=== PATIENT | female | born 1990 | race Caucasian/White ===

== ENCOUNTER 2018-06-06 23:36 | Emergency (ER) | payer OTHER ==
[2018-06-07 00:36] LABS: BILIRUBIN,URINE NEGATIVE (NEGATIVE); GLUCOSE, URINE (UA) NEGATIVE (NEGATIVE); KETONES,URINE (UA) NEGATIVE (NEGATIVE); LEUKOCYTE ESTERASE, URINE LARGE (NEGATIVE); NITRITE,URINE NEGATIVE (NEGATIVE); OCCULT BLOOD,URINE MODERATE (NEGATIVE); PROTEIN,URINE TRACE mg/dL (NEGATIVE); UROBILINOGEN,URINE 0.2 (NORMAL) E.U./dL (NORMAL)
[2018-06-07 00:42] LABS: CLARITY,URINE HAZY (CLEAR); HCG UR QUAL NEGATIVE
[2018-06-07 00:45] LABS: BACTERIA,URINE Few /HPF (None Seen); SQUAMOUS EPITHELIAL CELL,UR RARE Squamous (<= Few)
[2018-06-07] MEDS ORDERED: PHENAZOPYRIDINE 100 MG TABLET PO STA (01:15)
[2018-06-07] MEDS ORDERED: SULFAMETH/TRIMETH DS 800/160 MG TABLET PO STA (01:15)
--- NOTE | 2018-06-07 01:18 | ED Physician Documentation ---
PD HPI FEMALE - Stated complaint Stated Complaint: FEMALE - Chief complaint Chief Complaint: UTI - History obtained from History obtained from: Patient - History of Present Illness Timing - onset: Yesterday Timing - details: Gradual onset Associated symptoms: Dysuria, Urinary frequency Similar symptoms before: Work up / diagnostics Recently seen: Not recently seen - Additional information Additional information: Patient is a 27 year old female with no significant past medical history who is presenting to the emergency department for dysuria and increased frequency. patient states that her symptoms have been going on for the last few days. Review of Systems Ten Systems: 10 systems reviewed and negative Constitutional: denies: Fever, Chills GI: denies: Nausea, Vomiting PD PAST MEDICAL HISTORY - Past Medical History Past Medical History: No Cardiovascular: None Respiratory: None Neuro: None Endocrine/Autoimmune: None GI: None VASCULAR MANAGER: None : None HEENT: Other Psych: None Musculoskeletal: None Derm: None - Past Surgical History Past Surgical History: No - Present Medications Home Medications: Ambulatory Orders Medication Instructions Recorded Confirmed Phenazopyridine HCl [Pyridium] 200 mg PO TID PRN #6 tablet 06/07/18 Sulfamethox/Trimeth 800/160 1 each PO BID #10 tablet 06/07/18 [Bactrim Ds 800/160] - Allergies Allergies/Adverse Reactions: Allergies Allergy/AdvReac Type Severity Reaction Status Date / Time No Known Drug Allergies Allergy Verified 06/06/18 23:45 - Social History Does the pt smoke?: Yes Smoking Status: Light tobacco smoker Does the pt drink ETOH?: Yes Does the pt have substance abuse?: No - Immunizations Immunizations are current?: Yes - POLST Patient has POLST: No PD ED PE NORMAL - Vitals Vital signs reviewed: Yes - General General: Alert and oriented X 3, No acute distress - HEENT HEENT: Moist mucous membranes - Cardiac Cardiac: RRR - Respiratory Respiratory: No respiratory distress - Abdomen Abdomen: Non distended - Derm Derm: Normal color, Warm and dry - Extremities Extremities: No deformity - Neuro Neuro: Alert and oriented X 3, No motor deficit, Normal speech Eye Opening: Spontaneous - Psych Psych: Normal mood Results - Vitals Vitals: Vital Signs - 24 hr 06/06/18 06/07/18 23:45 01:29 Temperature 36.1 C L Heart Rate 90 90 Respiratory 18 17 Rate Blood Pressure 115/90 H 105/72 O2 Saturation 100 100 Oxygen O2 Source Room air - Labs Labs: Laboratory Tests 06/07/18 06/07/18 00:00 00:00 Urine Color YELLOW Urine Clarity HAZY Urine pH 7.0 Ur Specific [place] <=1.005 <1.005 Urine Protein TRACE Urine Glucose (UA) NEGATIVE Urine Ketones NEGATIVE Urine Occult Blood MODERATE H Urine Nitrite NEGATIVE Urine Bilirubin NEGATIVE Urine Urobilinogen 0.2 (NORMAL) Ur Leukocyte Esterase LARGE H Urine RBC 6-10 H Urine WBC >25 H Ur Squamous Epith Cells RARE Squamous Urine Bacteria Few Ur Microscopic Review INDICATED Urine Culture Comments INDICATED Urine HCG, Qual NEGATIVE PD MEDICAL DECISION MAKING - ED course Complexity details: reviewed old records, reviewed results, re-evaluated patient , considered differential, d/w patient ED course: patient was seen and examined at bedside. patient was well appearing. urine was sent and was consistent with urinary tract infection. Patient was treated with pyridium and bactrim. patient required no further work up at this time and was stable for discharge with outpatient follow up. - Sepsis Event Vital Signs: Vital Signs - 24 hr 06/06/18 06/07/18 23:45 01:29 Temperature 36.1 C L Heart Rate 90 90 Respiratory 18 17 Rate Blood Pressure 115/90 H 105/72 O2 Saturation 100 100 Oxygen O2 Source Room air Departure - Departure Disposition: 01 Home, Self Care Clinical Impression: Urinary tract infection Condition: Good Instructions: ED UTI Cystitis Female Follow-Up: NATHAN PETER DO [Primary Care Provider] - As Needed Prescriptions: Phenazopyridine HCl [Pyridium] 200 mg PO TID PRN #6 tablet PRN Reason: dysuria Sulfamethox/Trimeth 800/160 [Bactrim Ds 800/160] 1 each PO BID #10 tablet Comments: Your symptoms today are being caused by a urinary tract infection. You have been started on antibiotics and you will be on them for the next 5 days. It is important that you stay well hydrated during this time. You can take the pyridium, motrin or tylenol as needed for pain. You will be called if the bacteria is not sensitive to the antibiotic. You should follow up with your doctor if your symptoms persist. You may return to the emergency department at any time for new, worsening or uncontrollable symptoms. Discharge Date/Time: 06/07/18 01:29
[2018-06-07 01:30] VITALS: BP 105/72
== END 2018-06-07 01:29 | disposition home or self-care (01) ==
LOC: ED 23:36
DX: N39.0 Urinary tract infection, site not specified (principal); F17.200 Nicotine dependence, unspecified, uncomplicated
CPT/HCPCS: 81001; 81025; 87086; 87181; 99283; A9270; 81003

== ENCOUNTER 2019-02-14 16:49 | Outpatient (CLI) | payer OTHER ==
[2019-02-14] MEDS ORDERED: GADOBUTROL 7.5 MMOL/7.5 ML VIAL ONE (17:06)
[2019-02-14] MEDS ORDERED: GADOBUTROL 7.5 MMOL/7.5 ML VIAL IVP ONE ×2 (17:39)
--- NOTE | 2019-02-15 05:01 | MRI Report ---
Reason: PAIN IN THROAT Procedure Date: 02/14/2019 Accession Number: [id number] / [id number] Procedure: MRI - Neck Soft Tissue W/WO CPT Code: FULL RESULT: EXAM: MRI SOFT TISSUE NECK WITHOUT AND WITH CONTRAST EXAM DATE: 02/14/2019 06:06 PM. CLINICAL HISTORY: PAIN IN THROAT. COMPARISON: None. TECHNIQUE: Multiplanar, multisequence T1-weighted and fluid-sensitive MR sequences of the neck soft tissues were performed. Other: None. IV Contrast: . FINDINGS: Skull Base: Visualized intracranial contents and orbits are unremarkable. The skull base is intact. The visualized sinuses are clear. Pharynx and Oral Cavity: The pharyngeal mucosa is unremarkable. The infratemporal fossa, parapharyngeal spaces, and retropharyngeal space are unremarkable. The base of the tongue is symmetric. No mass lesion. The floor of the mouth is symmetric and unremarkable. The airway is patent. Larynx: The larynx and supraglottic airway are patent without mass lesion. The vocal cords are symmetric. The visualized trachea is unremarkable. Parotid and Submandibular Glands: Symmetric and unremarkable. Lymph Nodes and Soft Tissues: No enlarged cervical, supraclavicular fossa, or visualized superior mediastinal lymph nodes. No masses or swelling. Vasculature: Intact. Bones: Noted is a right posterior paracentral disk protrusion at C5-C6. There is contiguity and slight mass-effect on the right aspect of the cord. There is no appreciable narrowing of the foramina although this study resolution is not detailed for close evaluation of the cervical spine and structures. Other: The upper chest and thoracic inlet are unremarkable. The thyroid is unremarkable. IMPRESSION: 1. No definite findings within the soft tissues to explain clinical symptoms. 2. Right posterior paracentral disk protrusion C5-C6 with slight mass-effect on the right anterior aspect of the cord. RADIA
== END 2019-02-14 16:50 | disposition home or self-care (01) ==
LOC: DI 16:49
PROVIDERS: ATTEND General Practice
DX: R07.0 Pain in throat (principal); M50.222 Other cervical disc displacement at C5-C6 level
CPT/HCPCS: 70543; A9585

== ENCOUNTER 2019-10-19 14:37 | Emergency (ER) | payer OTHER ==
[2019-10-19] MEDS ORDERED: SODIUM CHLORIDE 0.9% 1,000 ML IV ONE ×2 (15:58)
--- NOTE | 2019-10-19 16:06 | ED Physician Documentation ---
PD HPI SYNCOPE - Stated complaint Stated Complaint: FALL/FACIAL INJURY, POSSIBLE SZ - Chief complaint Chief Complaint: Neuro - History obtained from History obtained from: Patient, Family - History of Present Illness Witnessed: Witnessed Duration: Seconds (10) Preceding symptoms: Light headed Associated symptoms: No: Seizure, Incontinant of urine, Incontinant of stool, Headache, Vision changes, Chest pain, Palpitations, Diaphoresis, Dyspnea, Nausea / vomiting, Abdominal pain Contributing factors: Just stood up Injury occurred: Fell (hit face on ground) Pain level max: 5 Pain level now: 4 Similar symptoms before: Has not had sx before Recently seen: Not recently seen - Additional information Additional information: 29-year-old female states that she had an emesis this morning. She was on the couch when she stood up and stretched. Next thing she knew she was on the ground. witnessed the event. He states she was unconscious for a few seconds, back to her normal self within about 30 seconds. No seizure activity. No vomiting. No changes in her home medications. She is on Zoloft at home. Review of Systems Constitutional: denies: Fever, Chills Cardiac: denies: Chest pain / pressure Respiratory: denies: Cough GI: denies: Nausea, Vomiting : denies: Now EGA Skin: denies: Rash Musculoskeletal: denies: Neck pain, Back pain Neurologic: denies: Focal weakness, Numbness, Seizure, Confused PD PAST MEDICAL HISTORY - Past Medical History Cardiovascular: None Respiratory: None Neuro: None Endocrine/Autoimmune: None GI: None OUTREACH SPECIALIST: None : None HEENT: Other Psych: None Musculoskeletal: None Derm: None - Past Surgical History Past Surgical History: No - Present Medications Home Medications: Ambulatory Orders Medication Instructions Recorded Confirmed Sertraline [Zoloft] 10/19/19 - Allergies Allergies/Adverse Reactions: Allergies Allergy/AdvReac Type Severity Reaction Status Date / Time No Known Drug Allergies Allergy Verified 10/19/19 14:57 - Social History Does the pt smoke?: Yes Smoking Status: Light tobacco smoker Does the pt drink ETOH?: Yes Does the pt have substance abuse?: No - Immunizations Immunizations are current?: Yes - POLST Patient has POLST: No PD ED PE NORMAL - Vitals Vital signs reviewed: Yes - General General: Alert and oriented X 3, No acute distress - HEENT HEENT: PERRL, Ears normal, Moist mucous membranes, Pharynx benign, Other (Abrasion to the upper lip. No facial bone tenderness. No deformity. No swelling. No lacerations. No scalp hematomas or palpable skull fractures.) - Neck Neck: Supple, no meningeal sign - Cardiac Cardiac: RRR - Respiratory Respiratory: No respiratory distress, Clear bilaterally - Abdomen Abdomen: Soft, Non tender, Non distended - Derm Derm: Warm and dry - Neuro Neuro: Alert and oriented X 3, milk collector 2-12 intact, No motor deficit, No sensory deficit, Normal speech Eye Opening: Spontaneous Motor: Obeys Commands Verbal: Oriented GCS Score: 15 - Psych Psych: Normal mood, Normal affect Results - Vitals Vitals: Vital Signs - 24 hr 10/19/19 10/19/19 10/19/19 14:53 16:25 17:10 Temperature 36.8 C Heart Rate 89 94 89 Respiratory 16 18 18 Rate Blood Pressure 139/84 H 109/74 105/76 O2 Saturation 99 95 98 Oxygen O2 Source Room air - EKG (time done) 1607 Rate: Rate (enter#) (109) Rhythm: Sinus tachycardia [place]: Normal Intervals: Normal NM QRS: Normal Ischemia: Normal ST segments - Labs Labs: Laboratory Tests 10/19/19 10/19/19 10/19/19 16:00 16:20 16:20 WBC 8.0 RBC 3.72 L Hgb 12.2 Hct 36.5 L MCV 98.1 MCH 32.8 H MCHC 33.4 RDW 12.3 Plt Count 293 MPV 8.2 Neut # (Auto) 5.6 Lymph # (Auto) 1.7 [place] # (Auto) 0.6 Eos # (Auto) 0.1 Baso # (Auto) 0.0 Absolute Nucleated RBC 0.00 Nucleated RBC % 0.0 D-Dimer Sodium 135 Potassium 4.1 Chloride 100 L Carbon Dioxide 22 Anion Gap 13.0 BUN 8 Creatinine 0.6 Estimated GFR (MDRD) 118 Glucose 80 Calcium 9.0 Total Bilirubin 0.6 AST 30 ALT 32 Alkaline Phosphatase 39 L Troponin I High Sens Total Protein 7.3 Albumin 4.2 Globulin 3.1 Albumin/Globulin Ratio 1.4 Lipase 38 Urine Color YELLOW Urine Clarity CLEAR Urine pH 5.5 Ur Specific [place] <=1.005 Urine Protein NEGATIVE Urine Glucose (UA) NEGATIVE Urine Ketones NEGATIVE Urine Occult Blood NEGATIVE Urine Nitrite NEGATIVE Urine Bilirubin NEGATIVE Urine Urobilinogen 0.2 (NORMAL) Ur Leukocyte Esterase NEGATIVE Ur Microscopic Review NOT INDICATED Urine Culture Comments NOT INDICATED Urine HCG, Qual NEGATIVE Ethyl Alcohol 53.5 10/19/19 10/19/19 16:20 16:20 WBC RBC Hgb Hct MCV MCH MCHC RDW Plt Count MPV Neut # (Auto) Lymph # (Auto) [place] # (Auto) Eos # (Auto) Baso # (Auto) Absolute Nucleated RBC Nucleated RBC % D-Dimer < 200.0 L Sodium Potassium Chloride Carbon Dioxide Anion Gap BUN Creatinine Estimated GFR (MDRD) Glucose Calcium Total Bilirubin AST ALT Alkaline Phosphatase Troponin I High Sens < 2.3 L Total Protein Albumin Globulin Albumin/Globulin Ratio Lipase Urine Color Urine Clarity Urine pH Ur Specific [place] Urine Protein Urine Glucose (UA) Urine Ketones Urine Occult Blood Urine Nitrite Urine Bilirubin Urine Urobilinogen Ur Leukocyte Esterase Ur Microscopic Review Urine Culture Comments Urine HCG, Qual Ethyl Alcohol - Rads (name of study) cxr Radiology: Prelim report reviewed, EMP read contemporaneously, See rad report (No acute disease) PD MEDICAL DECISION MAKING - ED course Complexity details: reviewed results, re-evaluated patient, considered differential, d/w patient, d/w family ED course: 29-year-old female with syncope at home today. No acute laboratory findings, ra diographic findings or EKG findings. She did have tachycardia, no symptoms of PE and d-dimer is negative. Her tachycardia improved with IV fluids. Likely that she was mildly dehydrated and when she stood up her blood pressure dropped. This may have been exacerbated by the alcohol today as well. We will have her follow-up with her doctor for further care. Patient counseled regarding signs and symptoms for which I believe and urgent re-evaluation would be necessary. Patient with good understanding of and agreement to plan and is comfortable going home at this time This document was made in part using voice recognition software. While efforts are made to proofread this document, sound alike and grammatical errors may occur. Departure - Departure Disposition: 01 Home, Self Care Clinical Impression: Syncope Qualifiers: Syncope type: unspecified Qualified Code(s): R55 - Syncope and collapse Condition: Good Instructions: ED Fainting Unkn Cause Follow-Up: NATHAN PETER DO [Primary Care Provider] - Within 1 week Comments: Your testing does not show any acute abnormalities today, other than dehydration. Return if you worsen. Follow-up with your doctor within 1 week. They may want to put you on a Holter monitor for home which monitors your heart for any arrhythmias. Discharge Date/Time: 10/19/19 18:00
--- NOTE | 2019-10-19 16:10 | XRAY Report ---
Reason: syncope Procedure Date: 10/19/2019 Accession Number: [id number] / [id number] Procedure: XR - Chest 1 View X-Ray CPT Code: 16964 Final Report FULL RESULT: EXAM: CHEST RADIOGRAPHY EXAM DATE: 10/19/2019 04:04 PM. CLINICAL HISTORY: Syncope. COMPARISON: None. TECHNIQUE: 1 view. FINDINGS: Lungs/Pleura: No focal opacities evident. No pleural effusion. No pneumothorax. Mediastinum: Within exam limitations, the cardiomediastinal contour is normal. Other: None. IMPRESSION: No acute findings. RADIA
[2019-10-19 16:19] LABS: BILIRUBIN,URINE NEGATIVE (NEGATIVE); GLUCOSE, URINE (UA) NEGATIVE (NEGATIVE); KETONES,URINE (UA) NEGATIVE (NEGATIVE); LEUKOCYTE ESTERASE, URINE NEGATIVE (NEGATIVE); NITRITE,URINE NEGATIVE (NEGATIVE); OCCULT BLOOD,URINE NEGATIVE (NEGATIVE); PH,URINE 5.5 PH (5.0-7.5); PROTEIN,URINE NEGATIVE (NEGATIVE); UROBILINOGEN,URINE 0.2 (NORMAL) E.U./dL (NORMAL)
[2019-10-19 16:23] LABS: CLARITY,URINE CLEAR (CLEAR); HCG UR QUAL NEGATIVE
[2019-10-19 16:27] LABS: BASOPHILS % (AUTO) 0.5 %; EOSINOPHILS # (AUTO) 0.1 10^3/uL (0.0-0.7); EOSINOPHILS % (AUTO) 0.7 %; HGB - HEMOGLOBIN 12.2 g/dL (12.0-16.0); LYMPHOCYTES # (AUTO) 1.7 10^3/uL (1.5-3.5); LYMPHOCYTES % (AUTO) 21.5 %; MEAN CORPUSCULAR HEMOGLOBIN 32.8 pg (27.0-31.0); MEAN CORPUSCULAR HGB CONC 33.4 g/dL (32.0-36.0); MEAN CORPUSCULAR VOLUME 98.1 fL (81.0-99.0); MEAN PLATELET VOLUME 8.2 fL (7.9-10.8); MONOCYTES # (AUTO) 0.6 10^3/uL (0.0-1.0); MONOCYTES % (AUTO) 7.4 %; NEUTROPHILS # (AUTO) 5.6 10^3/uL (1.5-6.6); NEUTROPHILS % (AUTO) 69.5 %; PLT - PLATELET COUNT 293 10^3/uL (130-450); RED BLOOD COUNT 3.72 10^6/uL (4.20-5.40); RED CELL DISTRIBUTION WIDTH 12.3 % (12.0-15.0)
[2019-10-19 16:44] LABS: ALBUMIN 4.2 g/dL (3.2-5.5); ALBUMIN/GLOBULIN RATIO 1.4 (1.0-2.2); BILIRUBIN,TOTAL 0.6 mg/dL (0.2-1.0); CREATININE 0.6 mg/dL (0.4-1.0); TOTAL PROTEIN 7.3 g/dL (6.7-8.2)
[2019-10-19 17:10] VITALS: BP 105/76
== END 2019-10-19 18:00 | disposition home or self-care (01) ==
LOC: ED 14:37
DX: R55 Syncope and collapse (principal); E86.0 Dehydration; R00.0 Tachycardia, unspecified; S00.511A Abrasion of lip, initial encounter; W18.30XA Fall on same level, unspecified, initial encounter; Y93.89 Activity, other specified; F17.200 Nicotine dependence, unspecified, uncomplicated
CPT/HCPCS: 36415; 71045; 80053; 80320; 81001; 81003; 81025; 83690; 84484; 85025; 85379; 87086; 93005; 96360; 99284

== ENCOUNTER 2022-06-21 18:01 | Emergency (ER) | payer OTHER ==
[2022-06-21 18:11] VITALS: BP 118/84
[2022-06-21 18:36] LABS: BILIRUBIN,URINE NEGATIVE (NEGATIVE); GLUCOSE, URINE (UA) NEGATIVE (NEGATIVE); KETONES,URINE (UA) NEGATIVE (NEGATIVE); LEUKOCYTE ESTERASE, URINE NEGATIVE (NEGATIVE); NITRITE,URINE NEGATIVE (NEGATIVE); OCCULT BLOOD,URINE NEGATIVE (NEGATIVE); PROTEIN,URINE NEGATIVE (NEGATIVE); UROBILINOGEN,URINE 0.2 (NORMAL) E.U./dL (NORMAL)
[2022-06-21 18:38] LABS: CLARITY,URINE CLEAR (CLEAR); HCG UR QUAL NEGATIVE
[2022-06-21 18:39] LABS: BASOPHILS % (AUTO) 0.6 %; EOSINOPHILS # (AUTO) 0.2 10^3/uL (0.0-0.7); EOSINOPHILS % (AUTO) 3.4 %; HCT - HEMATOCRIT 34.4 % (37.0-47.0); LYMPHOCYTES # (AUTO) 2.5 10^3/uL (1.5-3.5); LYMPHOCYTES % (AUTO) 53.3 %; MEAN CORPUSCULAR HEMOGLOBIN 34.6 pg (27.0-31.0); MEAN CORPUSCULAR HGB CONC 34.9 g/dL (32.0-36.0); MEAN CORPUSCULAR VOLUME 99.1 fL (81.0-99.0); MEAN PLATELET VOLUME 7.9 fL (7.9-10.8); MONOCYTES # (AUTO) 0.4 10^3/uL (0.0-1.0); MONOCYTES % (AUTO) 8.2 %; NEUTROPHILS # (AUTO) 1.6 10^3/uL (1.5-6.6); NEUTROPHILS % (AUTO) 34.5 %; PLT - PLATELET COUNT 265 10^3/uL (130-450); RED BLOOD COUNT 3.47 10^6/uL (4.20-5.40); RED CELL DISTRIBUTION WIDTH 13.8 % (12.0-15.0); WHITE BLOOD COUNT 4.7 x10^3/uL (4.8-10.8)
[2022-06-21 18:48] LABS: ALBUMIN 3.9 g/dL (3.2-5.5); ALBUMIN/GLOBULIN RATIO 1.3 (1.0-2.2); BILIRUBIN,TOTAL 0.4 mg/dL (0.2-1.0); CALCIUM 8.7 mg/dL (8.5-10.3); CREATININE 0.5 mg/dL (0.4-1.0); POTASSIUM 4.1 mmol/L (3.5-5.0)
--- NOTE | 2022-06-21 19:33 | ED Physician Documentation ---
History of Present Illness - Stated complaint Stated Complaint: FEMALE - Chief complaint Chief Complaint: Abd Pain - Additonal information Additional information: 31-year-old female presents emergency department for evaluation of 1 week of right upper quadrant and flank pain. Pain is mostly intermittent sometimes worse with activity and occasionally after eating. No nausea or vomiting. She has had a few episodes of watery diarrhea nonbloody nonmucoid. She reports that she is here today just to get" checked out.". She does endorse heavy alcohol use up to a bottle of wine per day. Also tobacco use. She was previously prescribed Lunesta which she has not filled for insomnia but otherwise has no other prescription history. No pertinent past surgical history. Review of Systems Constitutional: denies: Fever, Chills Eyes: reports: Reviewed and negative Nose: reports: Reviewed and negative Throat: reports: Reviewed and negative Cardiac: reports: Reviewed and negative Respiratory: reports: Reviewed and negative GI: reports: Abdominal Pain. 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 : None HEENT: Other Psych: None Musculoskeletal: None Derm: None - Past Surgical History Past Surgical History: No - Present Medications Home Medications: Ambulatory Orders Medication Instructions Recorded Confirmed Sertraline [Zoloft] 10/19/19 - Allergies Allergies/Adverse Reactions: Allergies Allergy/AdvReac Type Severity Reaction Status Date / Time No Known Drug Allergies Allergy Verified 06/21/22 18:11 - Social History Does the pt smoke?: Yes Smoking Status: Light tobacco smoker Does the pt drink ETOH?: Yes Does the pt have substance abuse?: No - Immunizations Immunizations are current?: Yes - POLST Patient has POLST: No PD ED PE NORMAL - General General: Alert and oriented X 3, No acute distress, Well developed/nourished - HEENT HEENT: Atraumatic, Moist mucous membranes - Neck Neck: Supple, no meningeal sign, No adenopathy - Cardiac Cardiac: RRR, No murmur - Respiratory Respiratory: No respiratory distress, Clear bilaterally - Abdomen Abdomen: Normal bowel sounds, Soft. No: Non tender (Mild right flank and right upper quadrant tenderness without guarding or rebound. Negative McBurney's negative Pringle's. No CVA tenderness) Results - Vitals Vitals: Vital Signs - 24 hr 06/21/22 18:08 Temperature 36.7 C Heart Rate 97 Respiratory 16 Rate Blood Pressure 118/84 H O2 Saturation 97 Oxygen O2 Source Room air - Labs Labs: Laboratory Tests 06/21/22 06/21/22 06/21/22 18:25 18:32 18:32 WBC 4.7 L RBC 3.47 L Hgb 12.0 Hct 34.4 L MCV 99.1 H MCH 34.6 H MCHC 34.9 RDW 13.8 Plt Count 265 MPV 7.9 Neut # (Auto) 1.6 Lymph # (Auto) 2.5 White # (Auto) 0.4 Eos # (Auto) 0.2 Baso # (Auto) 0.0 Absolute Nucleated RBC 0.00 Nucleated RBC % 0.0 Sodium 132 L Potassium 4.1 Chloride 96 L Carbon Dioxide 26 Anion Gap 10.0 BUN 6 Creatinine 0.5 Estimated GFR (MDRD) 144 Glucose 106 H Calcium 8.7 Total Bilirubin 0.4 AST 44 H ALT 32 Alkaline Phosphatase 46 Total Protein 7.0 Albumin 3.9 Globulin 3.1 Albumin/Globulin Ratio 1.3 Lipase 38 Urine Color YELLOW Urine Clarity CLEAR Urine pH 6.0 Ur Specific [place] <=1.005 Urine Protein NEGATIVE Urine Glucose (UA) NEGATIVE Urine Ketones NEGATIVE Urine Occult Blood NEGATIVE Urine Nitrite NEGATIVE Urine Bilirubin NEGATIVE Urine Urobilinogen 0.2 (NORMAL) Ur Leukocyte Esterase NEGATIVE Ur Microscopic Review NOT INDICATED Urine Culture Comments NOT INDICATED Urine HCG, Qual NEGATIVE - Rads (name of study) CT abd Radiology: Final report received (No definite acute intra-abdominal abnormality. No evidence of nephrolithiasis or obstructive uropathy. No evidence of appendicitis. No evidence of cholecystitis) PD MEDICAL DECISION MAKING - ED course Complexity details: reviewed results, re-evaluated patient, d/w patient ED course: 31-year-old female presents emergency department for evaluation of right upper quadrant right flank pain intermittent for about 1 week. Sometimes worse with movement and worse after eating. She does endorse moderate alcohol use. However on exam she has some mild right upper quadrant tenderness without a positive Pringle's. CBC was without leukocytosis or anemia. Her electrolytes had a mild hyponatremia with a sodium of 132. No electrolyte derangement otherwise or LFT abnormalities. A CT of the abdomen was completed and no findings to suggest acute cholecystitis, bowel obstruction appendicitis or urolithiasis. The etiology of the patient's pain is not clear at this time but given reassuring labs and exam she is stable for discharge home. I am recommending close follow-up with a primary care provider. I did recommend that the patient reduce markedly her alcohol use. Will follow closely with PCP. Emergent return precautions discussed for worsening symptoms Departure - Departure Disposition: Home, Self Care Clinical Impression: Right upper quadrant abdominal pain Condition: Stable Record reviewed to determine appropriate education?: Yes Instructions: ED Abdominal Pain Cause Unkn Fem Ch Follow-Up: DINA KATE MD [Primary Care Provider] - Comments: Jadyn tinoco are seen today in the emergency department for pain in the upper portion of your abdomen. Your symptoms began about 1 week ago. Here in the emergency department your CBC did not show an elevated white blood cell count. Your liver function tests were normal. The CT that we did of your abdomen did not show any findings to suggest kidney or gallstones. It does sound like you have moderate alcohol use and I would encourage you to reduce the amount of alcohol you consume to no more than 1 or 2 glasses of wine a few times a week. Please discuss this ED visit with your primary care provider. If you find that your symptoms are worsening, you develop fevers or vomiting you can return immediately to the ER.
--- NOTE | 2022-06-21 20:57 | CT Report ---
PROCEDURE: Abdomen/Pelvis WO INDICATIONS: RUQ/flank abd pain TECHNIQUE: Noncontrast 5 mm thick sections acquired from the diaphragms to the symphysis. 5 mm coronal and sagi ttal reformats were then performed. For radiation dose reduction, the following was used: automated exposure control, adjustment of mA and/or kV according to patient size. COMPARISON: None. FINDINGS: Image quality: Excellent. Lung bases:The visualized lung bases are clear. Heart: Heart is normal in size. URINARY: Right Kidney and Ureter: No stones or hydronephrosis. No hydroureter. Left Kidney and Ureter: No stones or hydronephrosis. No hydroureter. Bladder: Normal wall thickness. No stones. ABDOMEN: Liver: Noncontrast evaluation of the liver demonstrates no focal fatty infiltration in the anterior left hepatic lobe along the falciform ligament. Gallbladder: Within normal limits without calcified gallstones. Biliary ducts: No biliary ductal dilatation. Pancreas: Unremarkable. Spleen: Normal in size. Adrenal Glands: No adrenal nodules. Stomach and Bowel: Stomach, small bowel loops, and colon are normal in caliber and wall thickness. T he appendix is normal in appearance. Peritoneum: No abnormal intraperitoneal fluid. No free air. Ventral Wall: No hernia. Abdominal Nodes: No retroperitoneal or mesenteric adenopathy by size criteria. Vessels: Aorta and inferior vena cava are normal in size. PELVIS: Pelvic Organs: Unremarkable. Pelvic Nodes: No enlarged lymph nodes. Miscellaneous: No inguinal hernias identified. Bones: Visualized osseous structures demonstrate no suspicious focal lesions. IMPRESSION: 1. No definite acute intra-abdominal abnormality. Specifically, no evidence of nephrolithiasis or obs tructive uropathy. 2. No evidence of appendicitis. No CT evidence of cholecystitis. Reviewed by: Toby Morales MD on 06/21/2022 8:56 PM PDT Approved by: Toby Morales MD on 06/21/2022 8:56 PM PDT Station ID: [id number]
== END 2022-06-21 21:32 | disposition home or self-care (01) ==
LOC: ED 18:01
DX: R10.11 Right upper quadrant pain (principal); F17.200 Nicotine dependence, unspecified, uncomplicated
CPT/HCPCS: 36415; 80053; 81001; 81003; 81025; 83690; 85025; 87086; 99284